=== PATIENT | female | born 1985 | race Two or more races ===

== ENCOUNTER 2017-03-30 13:55 | Emergency (ER) | payer OTHER ==
[~2017-03-30] VITALS: Ht 167.6 cm; Wt 81.6 kg
[2017-03-30] MEDS ORDERED: Bacitracin Oint UD TOPIC ONE (14:11)
[2017-03-30 15:13] VITALS: BP 138/87
[2017-03-30 15:16] VITALS: BP 138/87
--- NOTE | 2017-03-30 15:30 | Emergency Room Report ---
History of Present Illness General Chief Complaint: General Complaint Source: Patient Present Illness HPI The patient is a 31-year-old female brought in by ambulance for promethazine ingestion. The patient states that her boyfriend broke up with her today and she wanted to sleep in order to clear her head so she went and got her promethazine bottle which was empty, filled it with water in order to obtain the residual medication from the kaufman of the bottle and drank some. She states that she had no suicidal or self-harm ideation and simply wanted to rest. She denies having any suicidal thoughts in the past. She states that her boyfriend call 911 as he was concerned. She denies any other symptoms including nausea, vomiting, fatigue, dizziness, blurred vision, headache, shortness of breath, chest pain Allergies: Coded Allergies: No Known Allergies (Unverified , 03/30/17) Patient History Past Medical History: see triage record Pertinent Family History: none Now: No Reviewed Nursing Documentation: PMH: Agreed, PSxH: Agreed Nursing Documentation-PMH Past Medical History: No Stated History Review of Systems All Other Systems: negative except mentioned in HPI Physical Exam Vital Signs Date Time Temp Pulse Resp B/P (MAP) Pulse Ox O2 Delivery O2 Flow Rate FiO2 03/30/17 13:43 97.9 98 16 150/90 98 Sp02 EP Interpretation: reviewed, normal General Appearance: no apparent distress, alert, GCS 15, non-toxic Head: normocephalic, atraumatic Eyes: bilateral eye normal inspection, bilateral eye PERRL ENT: hearing grossly normal, normal pharynx, no angioedema, normal voice Neck: full range of motion, supple/symm/no masses Respiratory: chest non-tender, lungs clear, normal breath sounds, speaking full sentences Cardiovascular #1: regular rate, rhythm, no edema Gastrointestinal: normal bowel sounds, non tender, soft, non-distended, no guarding, no rebound Musculoskeletal: back normal, gait/station normal, normal range of motion, non- tender Neurologic: alert, oriented x3, responsive, motor strength/tone normal, sensory intact, speech normal Psychiatric: judgement/insight normal, memory normal, mood/affect normal, no suicidal/homicidal ideation Suicide Risk Assessment: Suicidal Ideation: No Had intent to initiate attempt: No Pt's plan for suicide attempt: No Has means to complete attempt: No Skin: normal color, no rash, warm/dry, well hydrated Lymphatic: no adenopathy Medical Decision Making PA Attestation Dr. Sinclair is my supervising physician. Patient management was discussed with my supervising physician Diagnostic Impression: Primary Impression: promethazine ingestion ER Course The patient is a 31-year-old female presenting for promethazine ingestion Differential diagnosis considered but not limited to: Suicidal ideation, self- harm ideation, promethazine overdose, drug use, anxiety, depression, among others Physical exam: Vitals are stable. No apparent distress A&Ox3 Speech is clear Lungs are clear to auscultation bilaterally RRR Labs are positive for THC only. Negative alcohol Negative I do not believe the patient was trying to hurt herself. She denies suicidal ideation and has remained stable during your visit She'll be discharged home and needs to followup with psychiatry. She states that she has a safe place to go. ER precautions are given Laboratory Tests Test 03/30/17 14:05 03/30/17 14:35 Urine HCG, Qualitative Negative Urine Opiates Screen Positive (NEGATIVE) H Urine Barbiturates Screen Negative (NEGATIVE) Phencyclidine (PCP) Screen Negative (NEGATIVE) Urine Amphetamines Screen Negative (NEGATIVE) Urine Benzodiazepines Screen Negative (NEGATIVE) Urine Cocaine Screen Negative (NEGATIVE) Urine Marijuana (THC) Screen Negative (NEGATIVE) Serum Alcohol < 10 mg/dL Lab Results Impression neg preg. UDS + for THC only Last Vital Signs Date Time Temp Pulse Resp B/P (MAP) Pulse Ox O2 Delivery O2 Flow Rate FiO2 03/30/17 15:16 97.9 74 16 138/87 98 Status: improved Disposition: HOME, SELF-CARE Condition: Improved Additional Instructions: I discussed my findings with the patient. All questions and concerns have been answered. The patient states that she feels safe at home. I advise that the patient seek counseling. Return to emergency department if you experience any symptoms including fatigue , dizziness, shortness of breath, chest pain, blurred vision, altered level of consciousness, or anything else THAIS JANE Mar 30, 2017 15:30
== END 2017-03-30 15:19 | disposition home or self-care (01) ==
LOC: EDBD 13:55 → EMR 14:28
DX: T43.3X2A Poisoning by phenothiazine antipsychotics and neuroleptics, intentional self-harm, initial encounter (principal); Y92.9 Unspecified place or not applicable
CPT/HCPCS: 36415; 80300; 80329; 81025; 99283